=== PATIENT | female | born 1995 | race Caucasian/White ===

== ENCOUNTER 2023-05-06 12:19 | Observation (INO) | payer MEDICAID, OTHER | END 2023-05-06 14:50 | disposition home or self-care (01) | LOC: 8 EST A/PP 12:19 | PROVIDERS: ADMIT Specialist; ATTEND Specialist | DX: O26.893 Other specified pregnancy related conditions, third trimester (principal); N89.8 Other specified noninflammatory disorders of vagina; Z3A.28 28 weeks gestation of pregnancy | CPT/HCPCS: 59025; 76818; 76805; G0378 ×2; 99281 ==

== ENCOUNTER 2023-05-20 10:05 | Observation (INO) | payer OTHER ==
[~2023-05-20] VITALS: Ht 154.9 cm; Wt 83.0 kg
[2023-05-20] MEDS ORDERED: PNV1TABL76 PO (14:02)
== END 2023-05-20 14:10 | disposition home or self-care (01) ==
LOC: 8EST NSY 10:05
PROVIDERS: ADMIT Obstetrics & Gynecology; ATTEND Obstetrics & Gynecology
DX: O26.893 Other specified pregnancy related conditions, third trimester (principal); N89.8 Other specified noninflammatory disorders of vagina; Z3A.30 30 weeks gestation of pregnancy
CPT/HCPCS: 59025; 76818; 76805; G0378 ×2; 99281